=== PATIENT | female | born 1960 | race Caucasian/White ===

== ENCOUNTER → 2021-01-08 08:54 | Outpatient (BNVA) | payer MEDICARE, MEDICAID, SELFPAY | PROVIDERS: PCP Family Medicine; Visit Provider Family Medicine | DX: I10 Essential (primary) hypertension (principal); E78.5 Hyperlipidemia, unspecified; F41.1 Generalized anxiety disorder; Z79.899 Other long term (current) drug therapy; E78.1 Pure hyperglyceridemia; F41.0 Panic disorder [episodic paroxysmal anxiety] | CPT/HCPCS: 80053; 80061; 83721 ==